=== PATIENT | male | born 2000 | race Caucasian/White ===

== ENCOUNTER → 2023-11-17 | Outpatient (CLI) | payer OTHER ==
[~2023-11-17] MED LIST: PROPRANOLOL HCL40 M2 PO; WELLBUTRIN SR100 M4 PO
[2023-11-17 16:31] LABS: HEMATOCRIT 41.6 % (42.0-52.0); MEAN CELL VOLUME 89 fl (78-100); MEAN CORPUSCULAR HEMOGLOBIN 30 pg (27-31); MEAN CORPUSCULAR HGB CONC 34 g/dL (33-37); MEAN PLATELET VOLUME 9.7 fl (7.4-10.4); PLATELET COUNT 225 K/mm3 (130-400); RED BLOOD COUNT 4.66 M/mm3 (4.20-5.60); RED CELL DISTRIBUTION WIDTH 13.2 % (11.5-14.5); WHITE BLOOD COUNT 12.5 K/mm3 (4.8-10.8)
[2023-11-17 17:23] LABS: MONOCYTE 6 % (3-10); NEUTROPHILS 41 % (42-75)
[2023-11-17 17:27] LABS: LYMPHOCYTE 52 % (20-51)
== END ==
LOC: LAB 15:20
DX: J03.90 Acute tonsillitis, unspecified (principal)